=== PATIENT | female | born 1945 | race Caucasian/White ===

== ENCOUNTER → 2018-08-06 13:29 | Outpatient (CLI) | payer MEDICARE, SELFPAY ==
--- NOTE | 2018-08-06 | DI.ECHO.S_ITS ---
[facility]---------+ [facility] +---------+ : : [address] : : : : [phone] : : : : Phone: [phone]+ Echocardiogram Report + + :Name: LOPEZ BERRIOS Study Date: 08/06/2018 Height: 61 in : :[facility] Exam Location: [place] Weight: 150 lb : : Gender: Female BSA: 1.7 m2 : :: 1945 Age: 73 yrs BP: 100/60 mmHg: :Reason For Study: Cough : :Ordering Physician: Grady Rutherford Performed By: Amanda Page : + + Interpretation Summary Borderline concentric left ventricular hypertrophy with ejection fraction 55- 60%. Mild hypokinesis of apical anterior wall. Grade I diastolic dysfunction. Normal right ventricle size with mildly reduced right ventricular systolic function. Moderately dilated left atrium. Mild mitral annular calcification. No valvular regurgitation. Procedure: A two-dimensional transthoracic echocardiogram with color flow and Doppler was performed. The study quality was technically adequate. There is no prior echocardiogram noted for this patient. The subcostal views were not obtained due to body habitus. The patient was in normal sinus rhythm during the exam. Left Ventricle: The left ventricle is borderline dilated. There is borderline concentric left ventricular hypertrophy. The ejection fraction is estimated to be 55-60%. There is apical anterior wall mild hypokinesis. There are no other obvious focal wall motion abnormalities. Diastolic parameters suggest a relaxation abnormality of the left ventricle, consistent with probable normal filling pressures. Right Ventricle: The right ventricle is normal size. Right ventricular systolic function is mildly reduced. Atria: The left atrium is moderately dilated. Right atrial size is normal. There is no Doppler evidence for an interatrial shunt. Mitral Valve: The mitral valve leaflets appear mildly thickened, but open well. There is mild mitral annular calcification. There is trace mitral regurgitation. Aortic Valve: The aortic valve is trileaflet. The aortic valve opens well. No aortic regurgitation is present. Tricuspid Valve: The tricuspid valve is normal in structure and function. There is trace tricuspid regurgitation. Pulmonary artery pressures cannot be estimated because of the lack of a measurable TR jet velocity. Pulmonic Valve: The pulmonic valve is not well seen, but is grossly normal. There is mild pulmonic regurgitation. Great Vessels: The aortic root is normal size. The ascending aorta is normal in size. The pulmonary artery is not well visualized, but is probably normal size. The inferior vena cava was not visualized. Pericardium/ Pleura There is no pericardial effusion. There is no pleural effusion. MMode/2D Measurements & Calculations LVIDd: 5.4 cm LVOT diam: 1.9 cm LVIDs: 4.2 cm Ao root diam: 2.9 cm FS: 23.1 % asc Aorta Diam: 3.3 cm EPSS: 0.52 cm IVSd: 0.87 cm LVPWd: 1.0 cm LV minor. diameter/BSA (cm/m^2): 3.2 LV sys. diameter/BSA (cm/m^2): 2.5 LA A2 area: 25.0 cm2 RA long axis: 3.8 cm LA A4 area: 20.4 cm2 RA area: 12.6 cm2 LA length (vol): 5.5 cm RA vol: 35.5 ml LA vol: 78.7 ml RA : 21.2 ml/m2 LA vol index: 47.1 ml/m2 RVD1 (basal): 3.1 cm RVD2 (mid): 2.9 cm TAPSE: 1.6 cm Doppler Measurements & Calculations Ao V2 max: 134.4 cm/sec LVOT Max Alan: 95.1 cm/sec Ao V2 mean: 94.4 cm/sec LV V1 max P.6 mmHg Ao max P.2 mmHg LV V1 VTI: 20.6 cm Ao mean P.9 mmHg CAMILLA(I,D): 2.3 cm2 Ao V2 VTI: 25.7 cm CAMILLA(V,D): 2.0 cm2 sev ratio: 0.80 CAMILLA indexed to BSA (cm^2/m^2): 1.4 MV E max alan: 63.5 cm/sec PA V2 max: 74.2 cm/sec MV A max alan: 89.4 cm/sec PA V2 mean: 56.7 cm/sec MV E/A: 0.71 PA mean P.4 mmHg Med Peak E' Alan: 3.3 cm/sec PA Accel Time: 0.08 sec E/E' med: 19.2 Lat Peak E' Alan: 5.8 cm/sec E/E' lat: 11.0 E/e' average: 15.1 MV dec time: 0.26 sec MV P1/2t: 77.9 msec MV P1/2t max alan: 63.2 cm/sec SV(LVOT): 59.2 ml MVA(P1/2t): 2.8 cm2 Electronically signed by: Rachel Fontanez on Reading Physician:08/06/2018 03:44 PM
== END ==
PROVIDERS: Visit Provider Internal Medicine
DX: I37.1 Nonrheumatic pulmonary valve insufficiency (principal); R05 Cough
CPT/HCPCS: 93306